=== PATIENT | female | born 1995 | race Caucasian/White ===

== ENCOUNTER 2016-11-26 12:00 | Emergency (ER) | payer OTHER ==
[2016-11-26 12:05] VITALS: RESP 20
--- NOTE | 2016-11-26 12:31 | ED ---
Chest Pain HPI - General Chief Complaint: Chest Pain Stated Complaint: CHEST PAINS Time Seen by Provider: 11/26/16 12:16 Source: patient, RN notes reviewed Mode of arrival: ambulatory Limitations: no limitations - History of Present Illness Initial Comments: 21-year-old female presents emergency Department with chief complaint of chest pain. Patient states it started 1 hour ago prior arrival. She states she was at work when it started. She states it seems to come and go but it was some sinus pain nonradiating. She states is very sharp her last seconds. She has no shortness breath at this time. She states it did hurt to take deep duration when it was present. Patient denies any fever, chills, cold like symptoms. Patient states she has no cardiac history of benign past medical history. Denies any trauma no rashes. - Related Data Home Medications Medication Instructions Recorded Confirmed Ferrous Sulfate [Feosol] 325 mg PO DAILY 11/26/16 11/26/16 Allergies Allergy/AdvReac Type Severity Reaction Status Date / Time No Known Allergies Allergy Verified 11/26/16 12:13 Review of Systems ROS Statement: Those systems with pertinent positive or pertinent negative responses have been documented in the HPI. ROS Other: All systems not noted in ROS Statement are negative. EKG Findings - EKG Comments: EKG Findings:: EKG performed at 13:07 sinus bradycardia with right enriquez axis, rate of 51 DC interval 138, QRS duration 8062/QTC 416/383 Past Medical History Additional Past Medical History / Comment(s): Ovarian Cysts, ulcers History of Any Multi-Drug Resistant Organisms: None Reported Past Surgical History: No Surgical Hx Reported Past Psychological History: No Psychological Hx Reported Smoking Status: Never smoker Past Alcohol Use History: Occasional Past Drug Use History: None Reported General Exam Limitations: no limitations General appearance: alert, in no apparent distress Head exam: Present: atraumatic, normocephalic, normal inspection Eye exam: Present: normal appearance, PERRL, EOMI. Absent: scleral icterus, conjunctival injection, periorbital swelling ENT exam: Present: normal exam, normal oropharynx, mucous membranes moist, TM's normal bilaterally, normal external ear exam Neck exam: Present: normal inspection, full ROM. Absent: tenderness, meningismus, lymphadenopathy Respiratory exam: Present: normal lung sounds bilaterally, chest wall tenderness (Minimal). Absent: respiratory distress, wheezes, rales, rhonchi, stridor Cardiovascular Exam: Present: regular rate, normal rhythm, normal heart sounds. Absent: systolic murmur, diastolic murmur, rubs, gallop, clicks GI/Abdominal exam: Present: soft, normal bowel sounds. Absent: distended, tenderness, guarding, rebound, rigid Course Vital Signs 11/26/16 12:03 Temperature 98.1 F Pulse Rate 59 L Respiratory 20 Rate Blood Pressure 120/79 O2 Sat by Pulse 99 Oximetry Chest Pain MDM - [facility] This is a 21-year-old female presented for onset of chest discomfort intermittently this appears to be more chest wall pain and atypical chest pain. There is no evidence of acute cardiac event chest x-ray does not reveal any acute abnormality. Patient be discharged she is symptom-free at this time. Disposition Clinical Impression: Chest wall pain Disposition: HOME SELF-CARE Condition: Stable Instructions: Chest Pain (ED) Additional Instructions: Please return to the Emergency Department if symptoms worsen or any other concerns. Referrals: None,Stated [Primary Care Provider] - 1-2 days Time of Disposition: 13:15
--- NOTE | 2016-11-26 13:00 | XR ---
EXAMINATION TYPE: XR chest 2V DATE OF EXAM: 11/26/2016 COMPARISON: Chest x-ray June 04, 2010. HISTORY: Chest pain today. TECHNIQUE: Frontal and lateral views of the chest are obtained. FINDINGS: There is no focal air space opacity, pleural effusion, or pneumothorax seen. The cardiac silhouette size is within normal limits. The osseous structures are intact. IMPRESSION: No acute process. No significant change from prior.
[2016-11-26 13:34] VITALS: BP 108/68; PULSE 64; TEMP 98
== END 2016-11-26 13:34 | disposition home or self-care (01) ==
LOC: EC 12:00
DX: R07.89 Other chest pain (principal); J34.89 Other specified disorders of nose and nasal sinuses; Z79.899 Other long term (current) drug therapy
CPT/HCPCS: 71020; 99284

== ENCOUNTER → 2021-01-14 | Outpatient (CLI) | payer MEDICAID, OTHER | END | disposition home or self-care (01) | LOC: LABWHC1 10:52 | PROVIDERS: ATTEND Emergency Medicine | DX: Z03.818 Encounter for observation for suspected exposure to other biological agents ruled out (principal); R51.9 Headache, unspecified; Z20.822 Contact with and (suspected) exposure to COVID-19 | CPT/HCPCS: 87635 ==

== ENCOUNTER 2021-08-05 20:27 | Emergency (ER) | payer MEDICAID, OTHER ==
[2021-08-05 22:18] VITALS: TEMP 98.1
--- NOTE | 2021-08-05 22:31 | XR ---
EXAMINATION TYPE: XR chest 2V DATE OF EXAM: 08/05/2021 COMPARISON: 11/26/2016 HISTORY: Chest pain TECHNIQUE: 2 views FINDINGS: Heart and mediastinum are normal. Lungs are clear. Diaphragm is normal. Bony thorax is inta ct. IMPRESSION: Normal chest. No change.
[2021-08-05] MEDS ORDERED: ALBUTEROL HFA INHALER INHALATION STA (23:40)
--- NOTE | 2021-08-05 23:46 | ED ---
General Adult HPI - General Chief complaint: Shortness of Breath Stated complaint: Covid+,TAY Time Seen by Provider: 08/05/21 23:20 Source: patient, RN notes reviewed, old records reviewed Mode of arrival: ambulatory - History of Present Illness Initial comments: 26-year-old female presents with complaints of persistent cough. She did test positive for coronavirus at her place of employment. She was vaccinated but did not get a booster. She denies any fevers, no nausea, vomiting or diarrhea. No medical history, no medications on a daily basis other than control pills. She is a nonsmoker. -: days(s) Location: chest Radiation: non-radiation Severity scale (1-10): 0 Associated Symptoms: cough Treatments Prior to Arrival: none - Related Data Home Medications Medication Instructions Recorded Confirmed Ferrous Sulfate [Feosol] 325 mg PO DAILY 11/26/16 11/26/16 Previous Rx's Medication Instructions Recorded Albuterol Inhaler [Ventolin Hfa 2 puff INHALATION RT-QID #8 gm 08/05/21 Inhaler] predniSONE 50 mg PO DAILY #5 tab 08/05/21 Allergies Allergy/AdvReac Type Severity Reaction Status Date / Time No Known Allergies Allergy Verified 08/05/21 22:18 Review of Systems ROS Statement: Those systems with pertinent positive or pertinent negative responses have been documented in the HPI. ROS Other: All systems not noted in ROS Statement are negative. Past Medical History Additional Past Medical History / Comment(s): Ovarian Cysts, ulcers History of Any Multi-Drug Resistant Organisms: None Reported Past Surgical History: No Surgical Hx Reported Past Psychological History: No Psychological Hx Reported Smoking Status: Never smoker Past Alcohol Use History: Occasional Past Drug Use History: None Reported General Exam General appearance: alert, in no apparent distress Head exam: Present: atraumatic Eye exam: Present: normal appearance. Absent: scleral icterus, conjunctival injection ENT exam: Present: normal exam, normal oropharynx, mucous membranes moist Neck exam: Present: normal inspection, full ROM. Absent: tenderness, meningismus, lymphadenopathy, thyromegaly Respiratory exam: Present: normal lung sounds bilaterally. Absent: respiratory distress, wheezes, rales, accessory muscle use Cardiovascular Exam: Present: regular rate, normal rhythm, normal heart sounds Extremities exam: Present: normal capillary refill. Absent: pedal edema Neurological exam: Present: alert, oriented X3 Psychiatric exam: Present: normal affect, normal mood Skin exam: Present: warm, dry, intact, normal color. Absent: cyanosis, diaphoretic, pallor Course Vital Signs 08/05/21 08/06/21 22:13 00:00 Temperature 98.1 F Pulse Rate 92 94 Respiratory 19 18 Rate Blood Pressure 139/99 134/84 O2 Sat by Pulse 99 95 Oximetry Medical Decision Making - Medical Decision Making 26-year-old female presents with intermittent bouts of coughing uncontrollably. She states that she did test positive for coronavirus. She does not meet criteria for monoclonal antibody infusion. She has been vaccinated against coronavirus. She was given an albuterol treatment in the ER, along with a prescription for an inhaler and steroids. She was directed to return to the emergency room with a new concerning symptoms and follow up with the primary care doctor next week. She is agreeable to this plan of care. Vital signs are stable. Lungs are clear to auscultation. Oxygen saturation 99%. Disposition Clinical Impression: Cough, URI (upper respiratory infection) Disposition: HOME SELF-CARE Condition: Good Instructions (If sedation given, give patient instructions): Bronchospasm (ED) Additional Instructions: Increase your fluid intake. Take vitamin C, vitamin D and zinc to improve immune health. Use the albuterol inhaler 2 puffs every 4 hours as needed for cough or difficulty in breathing. Take steroids as prescribed for the next 5 days. Do not take Motrin while taking steroids. Use Tylenol as needed for pain or fevers. Return to the emergency room with any new or concerning symptoms. Follow-up with the primary care doctor next week. Prescriptions: predniSONE 50 mg PO DAILY #5 tab Albuterol Inhaler [Ventolin Hfa Inhaler] 2 puff INHALATION RT-QID #8 gm Is patient prescribed a controlled substance at d/c from ED?: No Referrals: None,Stated [Primary Care Provider] - 1-2 days Time of Disposition: 23:44
[2021-08-06 00:01] VITALS: BP 134/84; PULSE 94; RESP 18
== END 2021-08-06 00:10 | disposition home or self-care (01) ==
LOC: EC 20:27
DX: R05.9 Cough, unspecified (principal); J06.9 Acute upper respiratory infection, unspecified; Z20.822 Contact with and (suspected) exposure to COVID-19
CPT/HCPCS: 71046; 94640; 99283